=== PATIENT | male | born 1980 | race Caucasian/White ===

== ENCOUNTER 2020-05-30 15:37 | Emergency (ER) | payer BC, SELFPAY ==
[2020-05-30 15:59] VITALS: BP 173/108; PULSE 95; RESP 16; TEMP 36.7; O2SAT 97; BMI 62.4
--- NOTE | 2020-05-30 16:04 | HMH.EDUTC ---
[facility] [place] Disposition Clinical Impression: Pleurisy, Chest wall pain Disposition: Home, Self-Care Condition on Discharge: Good Instructions: Pleurisy, DI for Pleurisy Additional Instructions: Drink plenty of fluids. Take tylenol or ibuprofen for pain or fever. Take the medications as directed. Follow up with your regular doctor. GO TO THE ER FOR ANY WORSENING SYMPTOMS Don't start the oral steroids until tomorrow, since you had the shot here today. Keep an eye on your blood pressure and follow up with your primary care doctor regarding it. Prescriptions: methylPREDNISolone [Medrol] 4 mg PO DIRECTED 6 Days #21 [email or web address] Transmission Status: Received by [id number] Referrals: Sergio Nye [Primary Care Provider] - Forms: Work/School Release Time of Disposition: 16:50 Medical Decision Making - Medical Records Medical records reviewed: No: I reviewed the patient's medical records. - Rajendra Inquiry Pt receiving controlled substance: No Vital Signs: 05/30/20 15:59 05/30/20 16:54 Temperature 98.1 F 98.1 F Temperature Source Oral Pulse Rate 95 H Pulse Rate [Right Brachial] 95 H Respiratory Rate 16 16 Blood Pressure 173/108 H Blood Pressure [Right Arm] 173/108 H Blood Pressure Mean [Right Arm] 129 Blood Pressure Source [Right Arm] Automatic Cuff Blood Pressure Position [Right Arm] Sitting 02 Sat by Pulse Oximetry 97 Oxygen Delivery Method Room Air Orders (Tests/Meds): ED MEDICATIONS Discontinued Medications Generic Name Dose Route Start Last Admin Trade Name Freq PRN Reason Stop Dose Admin Ketorolac Tromethamine 60 mg 05/30/20 16:35 05/30/20 16:43 Toradol 60mg/2ml Vial IM 05/30/20 16:36 60 mg ONCE ONE Administration Methylprednisolone Sodium Succinate 125 mg 05/30/20 16:35 05/30/20 16:43 Solu-Medrol 125mg/2ml Vial IM 05/30/20 16:36 125 mg ONCE ONE Administration - Radiology Data #1 Image(s): Chest Image Reviewed: Yes I reviewed the patient's radiology image, Yes I have reviewed radiologist's interpretation Preliminary Findings: No Infiltrates Seen [facility] [place] HPI - General Stated complaint: pain under arm pit, hurts when breathe in Time Seen by Provider: 05/30/20 16:04 Mode of Arrival: Ambulatory Source of Information: Patient Limitations: No Limitations Description of Symptoms (Recalled from Triage Doc. by RN): PATIENT C/O PAIN UNDER LEFT ARM WHEN HE TAKES A DEEP BREATH. STATES THIS PAIN FEELS LIKE PLEURISY PAIN HE HAS HAD IN THE PAST HEENT Symptoms (Recalled from RN notes): No Resp Symptoms (Recalled from RN notes): No Skin Symptoms (Recalled from RN notes): No MS Symptoms (Recalled from RN notes): Yes Functional Status (Recalled from RN notes): WNL - History of Present Illness Provider Complaint: He states that he is having right shoulder pain and right upper anterior check pain with breathing deep and certain movements of his right shoulder. He denies any known injury or lifting of heavy things. He denies any fall recently. He has had pleursiy in [place] and he thinks that it felt just like what he is feeling at this time. - Related Data Home Medications Medication Instructions Recorded Confirmed amlodipine 10 mg-benazepril 20 mg PO 90 Days #90 cap 09/09/18 09/09/18 capsule omeprazole 40 mg capsule,delayed mg PO 90 Days #90 cap 09/09/18 09/09/18 release triamterene 75 PO 90 Days #90 tab 09/09/18 09/09/18 mg-hydrochlorothiazide 50 mg tablet venlafaxine 150 mg mg PO 30 Days #30 cap 09/09/18 09/09/18 capsule,extended release 24 hr Previous Rx's Medication Instructions Recorded Benzonatate [Benzonatate 200mg Cap] 200 mg PO HS PRN #14 cap 09/05/18 Fluticasone Propionate [Flonase 2 spr NS DAILY #1 bottle 09/05/18 50mcg nasal spray 16gm] doxycycline monohydrate 100 mg 100 mg PO BID 7 Days #14 cap 09/09/18 capsule methylPREDNISolone [Medrol] 4 mg PO DIRECTED 6 Days #21 05/30/20 tab.
--- NOTE | 2020-05-30 16:11 | XR_ITS ---
PROCEDURE: XR CHEST 2V CLINICAL HISTORY: PAIN COMPARISON: No exams were available for comparison FINDINGS: There is mild cardiomegaly without failure. There is a 13 mm nodule overlying the left lower lung zone. This is in the left lower lobe posteriorly and may be due to calcified granuloma. There are no previous exams available for comparison. No acute bony abnormalities. IMPRESSION: 13 mm left lower lobe nodule. This may be calcified and could be confirmed with CT. The remaining lungs are clear. Mild cardiomegaly without failure Dictated by: Emiliano Snyder MD 05/30/2020 16:47 Emiliano Snyder MD in [place] 05/30/2020 16:47
[2020-05-30 16:54] VITALS: BP 173/108; PULSE 95; RESP 16; TEMP 36.7; O2SAT 97
== END 2020-05-30 16:57 | disposition home or self-care (01) ==
PROVIDERS: Emergency Provider Nurse Practitioner Family; PCP Internal Medicine
DX: R09.1 Pleurisy (principal); R07.89 Other chest pain; I10 Essential (primary) hypertension; K21.9 Gastro-esophageal reflux disease without esophagitis; F41.9 Anxiety disorder, unspecified; Z88.0 Allergy status to penicillin; Z79.899 Other long term (current) drug therapy
CPT/HCPCS: 71046; 96372; 99202

== ENCOUNTER 2020-07-20 19:50 | Emergency (ER) | payer BC, SELFPAY ==
[2020-07-20 19:59] VITALS: BP 163/97; PULSE 105; RESP 16; TEMP 36.1; O2SAT 97; BMI 59.1
[2020-07-20 20:05] VITALS: BP 163/97; PULSE 105; RESP 16; TEMP 36.1; O2SAT 97; BMI 59.0
[2020-07-20 21:04] VITALS: BP 163/97; PULSE 105; RESP 16; TEMP 36.1; O2SAT 97
--- NOTE | 2020-07-20 21:04 | HMH.EDUTC ---
[facility] [place] Disposition Clinical Impression: Need for Tdap vaccination Hand laceration Qualifiers: Encounter type: initial encounter Foreign body presence: without foreign body Laterality: left Qualified Code(s): S61.412A - Laceration without foreign body of left hand, initial encounter Disposition: Home, Self-Care Condition on Discharge: Good Instructions: DI for Laceration Repair -- Finger, Tetanus, Diphtheria, Pertussis (Tdap) Vaccine Additional Instructions: Keep the wound clean and dry. Keep a dressing on it if you are going to be getting it dirty. Watch the for signs of infection, such as redness, swelling, drainage, fever. etc. Take tylenol or ibuprofen for pain. Follow up with your regular doctor. Return in 10 days to have the sutures removed. GO TO THE ER FOR ANY WORSENING SYMPTOMS OR CONCERNS. Referrals: Sergio Nye [Primary Care Provider] - Time of Disposition: 21:10 Medical Decision Making - Medical Records Medical records reviewed: No: I reviewed the patient's medical records. - Rajendra Inquiry Pt receiving controlled substance: No Vital Signs: 07/20/20 19:59 07/20/20 20:05 07/20/20 21:04 Temperature 97 F L 97 F L 97 F L Temperature Source Oral Oral Oral Pulse Rate 105 H Pulse Rate [Right Brachial] 105 H 105 H Respiratory Rate 16 16 16 Blood Pressure 163/97 H Blood Pressure [Right Arm] 163/97 H 163/97 H Blood Pressure Mean [Right Arm] 119 119 Blood Pressure Source Automatic Cuff Blood Pressure Source [Right Arm] Automatic Cuff Blood Pressure Position Sitting Blood Pressure Position [Right Arm] Sitting Sitting 02 Sat by Pulse Oximetry 97 97 Oxygen Delivery Method Room Air Room Air Room Air Orders (Tests/Meds): ED MEDICATIONS Discontinued Medications Generic Name Dose Route Start Last Admin Trade Name Freq PRN Reason Stop Dose Admin Tetanus/Diphtheria Toxoids 0.5 ml 07/20/20 20:09 07/20/20 20:26 Tetanus-Diphth Toxoid, Adult 0.5ml Syr IM 07/20/20 20:10 0.5 ml .ONCE ONE Administration [facility] [place] HPI - General Stated complaint: AO 07/20/20 Lac to l thumb cutting tobacco Time Seen by Provider: 07/20/20 20:05 Mode of Arrival: Ambulatory Source of Information: Patient Limitations: No Limitations Description of Symptoms (Recalled from Triage Doc. by RN): lac to thumb HEENT Symptoms (Recalled from RN notes): No Resp Symptoms (Recalled from RN notes): No Skin Symptoms (Recalled from RN notes): Yes MS Symptoms (Recalled from RN notes): No Functional Status (Recalled from RN notes): wnl - History of Present Illness Provider Complaint: He states that he was cutting a zip tie with a knife when he slipped and cut his left thumb. His tetanus immunization is not up to date. - Related Data Home Medications Medication Instructions Recorded Confirmed amlodipine 10 mg-benazepril 20 mg PO 90 Days #90 cap 09/09/18 09/09/18 capsule omeprazole 40 mg capsule,delayed mg PO 90 Days #90 cap 09/09/18 09/09/18 release triamterene 75 PO 90 Days #90 tab 09/09/18 09/09/18 mg-hydrochlorothiazide 50 mg tablet venlafaxine 150 mg mg PO 30 Days #30 cap 09/09/18 09/09/18 capsule,extended release 24 hr Previous Rx's Medication Instructions Recorded Benzonatate [Benzonatate 200mg Cap] 200 mg PO HS PRN #14 cap 09/05/18 Fluticasone Propionate [Flonase 2 spr NS DAILY #1 bottle 09/05/18 50mcg nasal spray 16gm] doxycycline monohydrate 100 mg 100 mg PO BID 7 Days #14 cap 09/09/18 capsule methylPREDNISolone [Medrol] 4 mg PO DIRECTED 6 Days #21 05/30/20 tab.[email or web address] Allergies Allergy/AdvReac Type Severity Reaction Status Date / Time cefaclor [From Ceclor] Allergy Verified 05/30/20 16:05 cephalexin [From Keflex] Allergy Verified 05/30/20 16:05 Penicillins Allergy Verified 05/30/20 16:05 - Worker's Comp Is this a Worker's Comp case?: No [facility] History - Hepatitis A Screen Drug use history?: No High risk sexual behaviors?: No Hi
== END 2020-07-20 21:17 | disposition home or self-care (01) ==
PROVIDERS: Emergency Provider Nurse Practitioner Family; PCP Internal Medicine
DX: S61.012A Laceration without foreign body of left thumb without damage to nail, initial encounter (principal); W26.0XXA Contact with knife, initial encounter; Y92.71 Barn as the place of occurrence of the external cause; Z23 Encounter for immunization; Z88.0 Allergy status to penicillin; F41.9 Anxiety disorder, unspecified; I10 Essential (primary) hypertension; K21.9 Gastro-esophageal reflux disease without esophagitis; Z79.899 Other long term (current) drug therapy
CPT/HCPCS: 12001; 90471; 90714; 99201

== ENCOUNTER → 2021-05-17 10:37 | Outpatient (CLI) | payer BC, SELFPAY ==
--- NOTE | 2021-05-17 10:41 | XR_ITS ---
PROCEDURE: XR CHEST 2V CLINICAL HISTORY: FOLLOW UP OF LLL NODULE, ASHTMA COMPARISON: CR XR CHEST 2V from 05/30/2020 FINDINGS: Borderline cardiomegaly without failure. There are 2 left lower lung zone nodules not significantly changed consistent with granulomas. Calcified nodes are present in the left hilum and right hilum. No acute bony abnormalities. IMPRESSION: Old granulomatous disease. No change in the left-sided pulmonary nodules Dictated by: Emiliano Snyder MD 05/17/2021 11:34 Emiliano Snyder MD in [place] 05/17/2021 11:34
== END ==
PROVIDERS: PCP Internal Medicine; Visit Provider Internal Medicine
DX: R91.1 Solitary pulmonary nodule (principal); J45.909 Unspecified asthma, uncomplicated; I10 Essential (primary) hypertension
CPT/HCPCS: 71046

== ENCOUNTER → 2021-06-24 09:35 | Outpatient (CLI) | payer BC, SELFPAY | PROVIDERS: Visit Provider Surgery | DX: Z20.822 Contact with and (suspected) exposure to COVID-19 (principal) | CPT/HCPCS: C9803; U0003; U0005 ==

== ENCOUNTER 2021-06-26 06:26 | Day surgery (SDC) | payer BC, SELFPAY ==
[2021-06-25 11:05] VITALS: BMI 62.6
[2021-06-26 06:56] VITALS: BP 113/62; PULSE 79; RESP 18; TEMP 36.4; O2SAT 97
[2021-06-26 07:23] VITALS: O2SAT 97
--- NOTE | 2021-06-26 07:57 | HMH.SCOPE ---
- Procedure: Date: 06/26/21 Patient Date of :: 1980 Procedure Performed:: Colonoscopy with polypectomy by snare x3 Indications:: Patient is a 41-year-old male with BMI of [address] Sergio Nye for initial screening colonoscopy for family history. He is asymptomatic regarding rectal bleeding. His father was diagnosed with colon cancer in his late 50s. Performing Provider:: Mat London MD Referring Provider:: Sergio Nye MD Sedation:: MAC sedation Procedure:: After adequate intravenous sedation was achieved digital examination was performed which revealed normal sphincter tone. Variable stiffness Olympus colonoscope was inserted via the anus. It was advanced to the cecum. Ileocecal valve and appendiceal orifice were clearly identified. Colonic preparation was good. Colonoscope was withdrawn through the colon with careful surveillance. In the ascending colon there was a small adenomatous appearing polyp measuring about 5 or 6 mm. This was removed with cold cutting snare. In the transverse colon there was a somewhat subtle ridge polyp removed with cold cutting snare. In the distal sigmoid colon there was an adenomatous appearing polyp measuring about 5 mm removed with cold cutting snare. Retroflexion within the rectum revealed no evidence of any obvious pathologic internal hemorrhoids. Colonoscope was withdrawn. Findings:: Polyps Recommendations:: Given family history and findings likely repeat colonoscopy 2 or 3 years pending pathology Complications:: None immediately apparent Estimated blood obtained (mL): 2
[2021-06-26 07:59] VITALS: BP 121/77; PULSE 84; RESP 18; TEMP 36.6; O2SAT 92
--- NOTE | 2021-06-26 08:04 | P.PN_ITS ---
[facility] Anesthesia Checklist - Patient Identification Patient Identification: Arm Band, Verbal (Name & ) - Structural Data Admitted From: Home Planned Operative Procedure/s: colonoscopy Consent for Planned Operative Procedure(s) Verified: Yes Verified Documents: History and Physical - NPO Status Verified Time NPO: 00:00 - Chart Verification Results Verified: CBC, BMP - Additional verifications Patient : No Anesthesia Reactions: No Hx Blood Transfusions: No Blood Transfusion Reaction: No Cephalosporin Allergy: No Previous Colonoscopy: No - Cardiovascular Assessment Heart Sounds: S1 & S2 Pulse Strength: Baseline Pulse Rhythm: Regular Peripheral Edema: No - Airway Assessment C-Spine Mobility Assessed: Yes TMJ Mobility Assessed: Yes Dentition: Good Dentition - Neurological Assessment Level of Consciousness: Awake, Alert, Appropriate Hx Seizures: No Numbness or tingling in extremities: No - Anesthesia Plan Anesthesia Risk discussed: Yes Anesthesia Plan: Verified Anesthesia Type: MAC [facility] History I have reviewed the patient's past medical history: Yes Medical History: Reports:: Anxiety, Gastroesophageal Reflux Disease(GERD), Hypertension Denies:: Cancer, Diabetes Mellitus Type 1, Diabetes Mellitus Type 2, Internal Pacemaker, MRSA, Seizures *Have you ever received a pneumonia vaccine?: No *Have you received a flu vaccine this season?: Yes Anesthesia experience/problems:: none Other Surgeries: Yes: No Previous Surgery, Other. No: Pacemaker Amputation: No Fractures: Yes (r arm plates/screws) - *Social History Smoking Status: Never smoker Alcohol Intake: current Alcohol Intake Frequency:: holidays/special occasions only Substance Use Type: other *Occupational Status:: employed Housing: house Household Members: family *Travel in the last 8 weeks: None - Psychiatric History Pschychiatric History:: Reports:: Anxiety Family Hx:: Cancer, Hypertension
[2021-06-26 08:09] VITALS: BP 123/78; PULSE 79; RESP 16; O2SAT 95
[2021-06-26 08:19] VITALS: BP 134/87; PULSE 71; RESP 16; O2SAT 98
[2021-06-26 08:29] VITALS: BP 138/79; PULSE 77; RESP 16; O2SAT 99
== END 2021-06-26 08:29 | disposition home or self-care (01) ==
LOC: OUTP 06:27
PROVIDERS: PCP Internal Medicine; Visit Provider Surgery
PROC: 0DJD8ZZ Inspection of Lower Intestinal Tract, Via Natural or Artificial Opening Endoscopic (ICD-10-PCS; CPT 45385; principal; 2021-06-26 07:30)
DX: Z12.11 Encounter for screening for malignant neoplasm of colon (principal); Z80.0 Family history of malignant neoplasm of digestive organs; K63.5 Polyp of colon; I10 Essential (primary) hypertension; K21.9 Gastro-esophageal reflux disease without esophagitis; F41.9 Anxiety disorder, unspecified; Z82.49 Family history of ischemic heart disease and other diseases of the circulatory system; Z88.0 Allergy status to penicillin; Z88.1 Allergy status to other antibiotic agents; Z79.899 Other long term (current) drug therapy
CPT/HCPCS: 45385

== ENCOUNTER → 2021-11-04 14:23 | Outpatient (CLI) | payer BC, SELFPAY ==
--- NOTE | 2021-11-04 14:31 | XR_ITS ---
FINAL REPORT CLINICAL HISTORY: LEFT LEG INJURY, PT FELL THROUGH A FLOOR DAY EVENING. VERY LARGE PATIENT. FINDINGS: LEFT TIBIA FIBULA 2 views were obtained. There is no acute fracture or dislocation. The joint spaces are intact. There is a small to moderate plantar spur. There is no soft tissue abnormality. IMPRESSION: No acute bony abnormality. Reviewed, Interpreted and Dictated by Lenin Summers MD Transcribed by Lashanda Luz Authenticated by Lenin Summers MD on 11/04/2021 03:37:18 PM [facility]
--- NOTE | 2021-11-04 14:31 | XR_ITS ---
FINAL REPORT CLINICAL HISTORY: LEFT LEG INJURY. PATIENT FELL THROUGH FLOOR THURSDAY EVENING. VERY LARGE PATIENT. FINDINGS: LEFT HIP Two views of the left hip including an AP pelvis demonstrate no acute fracture or dislocation. There is mild narrowing of the left hip space. The visualized bony structures are well aligned. The bones are well mineralized. No soft tissue abnormality is seen. IMPRESSION: No acute bony abnormality. Reviewed, Interpreted and Dictated by Lenin Summers MD Transcribed by Lashanda Luz Authenticated by Lenin Summers MD on 11/04/2021 03:37:19 PM [facility]
--- NOTE | 2021-11-04 14:31 | XR_ITS ---
FINAL REPORT CLINICAL HISTORY: LEFT LEG INJURY. PT FELL THROUGH FLOOR THURSDAY EVENING, VERY LARGE PATIENT. FINDINGS: LEFT FEMUR Two views of the left femur demonstrate no acute fracture or dislocation. The visualized joint spaces are normally aligned. The soft tissues are unremarkable. IMPRESSION: No acute bony abnormality. Reviewed, Interpreted and Dictated by Lenin Summers MD Transcribed by Lashanda Luz Authenticated by Lenin Summers MD on 11/04/2021 03:37:[address] [facility]
--- NOTE | 2021-11-04 14:31 | XR_ITS ---
FINAL REPORT CLINICAL HISTORY: LEFT LEG INJURY, PATIENT FELL THROUGH A FLOOR THURSDAY EVENING, VERY LARGE PATIENT. FINDINGS: LEFT KNEE 3 views of the left knee were obtained. There is no acute fracture or dislocation. There is mild narrowing of the patellofemoral joint. There is sharpening of the tibial spine. Soft tissues are unremarkable. IMPRESSION: No acute bony abnormality. Reviewed, Interpreted and Dictated by Lenin Summers MD Transcribed by Lashanda Luz Authenticated by Lenin Summers MD on 11/04/2021 03:37:14 PM [facility]
== END ==
PROVIDERS: PCP Internal Medicine; Visit Provider Internal Medicine
DX: S89.92XA Unspecified injury of left lower leg, initial encounter; M25.552 Pain in left hip; M79.605 Pain in left leg
CPT/HCPCS: 73502; 73552; 73562; 73590

== ENCOUNTER 2022-07-27 11:57 | Emergency (ER) | payer BC, SELFPAY ==
[2022-07-27 12:15] VITALS: BP 169/101; PULSE 97; RESP 20; O2SAT 99; BMI 62.8
--- NOTE | 2022-07-27 12:17 | XR_ITS ---
PROCEDURE INFORMATION: Exam: XR Left Foot Exam date and time: 07/27/2022 1:24 PM Age: 42 years old Clinical indication: Injury or trauma; Fall; Blunt trauma; Foot; Left TECHNIQUE: Imaging protocol: Radiologic exam of the Left foot. Views: 3 or more views. COMPARISON: CR XR TIBIA FIBULA LT 2V 11/04/2021 2:37 PM FINDINGS: Bones/joints: There is no evidence of acute fracture.There is no evidence of malalignment or dislocation. Degenerative changes in the tarsal metatarsal joints Soft tissues: Normal. IMPRESSION: There is no evidence of acute fracture.There is no evidence of malalignment or dislocation.
[2022-07-27 12:50] VITALS: BP 169/101; PULSE 97; RESP 20; TEMP 37; O2SAT 99; BMI 62.6
--- NOTE | 2022-07-27 13:21 | EXP.UTC ---
Discharge Plan Disposition Patient Disposition: Home, Self-Care Condition: Good Prescriptions Prescriptions: No Action venlafaxine 150 mg capsule,extended release 24hr 150 mg PO DAILY 30 Days Qty: 30 triamterene-hydrochlorothiazid 75-50 mg tablet 1 mg PO DAILY 90 Days Qty: 90 omeprazole 40 mg capsule,delayed release(DR/EC) 1 mg PO DAILY 90 Days Qty: 90 amlodipine-benazepril 10-20 mg capsule 1 mg PO DAILY 90 Days Qty: 90 Referrals Follow up/Referrals: Sergio Nye MD [Primary Care Provider] - See instructions Criselda Edgar DPM [Staff Physician] - See instructions Activity Restrictions/Add. Instructions Additional Instructions/Restrictions: *weight bearing as tolerated *RICE, Rest the extremity, Ice 15-20 minutes 3-4 times daily, Compress- wear the kobe wrap as discussed as much as possible to help reduce swelling and pain, Elevate the extremity when at rest *Kobe wrap is for support and help control swelling, use it except in the shower. Be sure that is not to tight but not to loose either *Elevate when resting? *Ibuprofen 600-800mg every 6-8 hours as needed for pain an inflammation. If need something more can take Tylenol in between doses of Ibuprofen to help Immediately follow up with your family doctor for new or worsening of symptoms, or no noticeable improvement over the next 3-5 days Follow up with Family Doctor or Podiatry if pain continues Clinical Impressions Clinical Impression: Foot sprain Qualifiers: Encounter type: initial encounter Laterality: left Qualified Code(s): S93.602A - Unspecified sprain of left foot, initial encounter Instructions Patient Instructions: How To Perform RICE (Rest, Ice, Compress, Elevate), DI for Foot Sprain Discharge ED Provider: Mary Jo Arce [facility] [place] General Stated complaint: Fell 07/26@home LT foot pain Mode of Arrival: Ambulatory Source of Information: Patient Limitations: No Limitations Time Seen by Provider: 07/27/22 13:00 Description of Symptoms (Recalled from Triage Doc. by RN): PATIENT C/O LEFT FOOT PAIN AFTER FALLING WITH HIS FOOT FOLDING UNDER HIM LAST NIGHT HEENT Symptoms (Recalled from RN notes): No Resp Symptoms (Recalled from RN notes): No Skin Symptoms (Recalled from RN notes): No MS Symptoms (Recalled from RN notes): Yes Functional Status (Recalled from RN notes): WNL History of Present Illness Provider Complaint: Patient states that last night he was walking and tripped over dog he thinks and rolled his toes and foot States that ever since he has been having pain in the top of his foot from his middle toe back and this morning he was still hurting and looked bruised so he came in Related Data Home Medications Medication Instructions Recorded Confirmed amlodipine 10 mg-benazepril 20 mg 1 mg PO DAILY BP 90 days #90 caps 09/09/18 07/05/21 capsule omeprazole 40 mg capsule,delayed 1 mg PO DAILY ACID REFLUX 90 days 09/09/18 07/05/21 release #90 caps triamterene 75 1 mg PO DAILY BP 90 days #90 tabs 09/09/18 07/05/21 mg-hydrochlorothiazide 50 mg tablet venlafaxine 150 mg 150 mg PO DAILY Depression 30 days 09/09/18 07/05/21 capsule,extended release 24 hr #30 caps Allergies Allergy/AdvReac Type Severity Reaction Status Date / Time cefaclor [From Ceclor] Allergy Verified 07/05/21 09:35 cephalexin [From Keflex] Allergy Verified 07/05/21 09:35 Penicillins Allergy Verified 07/05/21 09:35 Worker's Comp Is this a Worker's Comp case?: No PFSH PFSH Social History Smoking Status: Never smoker alcohol intake: current substance use type: other current occupational status: employed Travel in the last 8 weeks: None household members: family housing: house caffeine: No ROS Obtained: Yes All systems reviewed & no additional complaints except as documented and Yes Systems reviewed as appropriate & no additional complaints except as documented Constitutional Constitutional: Reports system reviewed an
[2022-07-27 14:34] VITALS: BP 169/101; PULSE 97; RESP 20; TEMP 37; O2SAT 99
--- NOTE | 2022-07-27 14:34 | PC.NURSE ---
JACK WRAP AND POST-OP SHOE APPLIED TO LEFT FOOT AT THIS TIME
== END 2022-07-27 14:41 | disposition home or self-care (01) ==
PROVIDERS: Emergency Provider Nurse Practitioner; PCP Internal Medicine
DX: S93.602A Unspecified sprain of left foot, initial encounter (principal); Z79.899 Other long term (current) drug therapy; Z88.0 Allergy status to penicillin; Z88.8 Allergy status to other drugs, medicaments and biological substances; W01.0XXA Fall on same level from slipping, tripping and stumbling without subsequent striking against object, initial encounter
CPT/HCPCS: 73630; 99213; G0463

== ENCOUNTER → 2022-08-12 11:29 | Outpatient (CLI) | payer BC, SELFPAY ==
--- NOTE | 2022-08-12 11:34 | XR_ITS ---
FINAL REPORT CLINICAL HISTORY: FALL 07/27/22 LT FOOT INJURY,PAIN IN 3RD AND 4TH TOES FINDINGS: Multiple views of the left toes were obtained. There is a fracture of the 3rd middle phalanx best seen on the lateral view that extends to the PIP joint. There is no acute fracture of the 4th toe. There is no dislocation. There are no acute soft tissue abnormalities. IMPRESSION: Fracture of the 3rd middle phalanx with intra-articular extension. Reviewed, Interpreted and Dictated by Mat Snow III, MD Transcribed by Marcus Garcia Authenticated and [facility]
--- NOTE | 2022-08-12 11:34 | XR_ITS ---
FINAL REPORT CLINICAL HISTORY: FALL 07/27/22 LT FOOT INJURY,PAIN IN 3RD AND 4TH TOES COMPARISON: July 27, 2022 FINDINGS: Three views of the left foot were obtained. There is a vertical lucency through the navicular worrisome for fracture but of uncertain age. There is a chronic fracture of the 5th proximal phalanx. There is a fracture of the 3rd middle phalanx best seen on the lateral view. There is no dislocation. There are no acute soft tissue abnormalities. IMPRESSION: Vertical lucency in the navicular worrisome for fracture but of uncertain age could be subacute or chronic. Fracture of the 3rd middle phalanx. Reviewed, Interpreted and Dictated by Mat Snow III, MD Transcribed by Marcus Garcia Authenticated and [facility]
--- NOTE | 2022-08-12 12:07 | XR_ITS ---
FINAL REPORT CLINICAL HISTORY: PAIN after fall 2 weeks ago pain in 3rd toe FINDINGS: Multiple views of the left toes were obtained. There is a fracture of the 3rd middle phalanx best seen on the lateral view that extends to the PIP joint. There is no acute fracture of the 4th toe. There is no dislocation. There are no acute soft tissue abnormalities. IMPRESSION: Fracture of the 3rd middle phalanx with intra-articular extension. Reviewed, Interpreted and Dictated by Mat Snow III, MD Transcribed by Marcus Garcia Authenticated and [facility]
== END ==
LOC: RAD 11:30
PROVIDERS: PCP Internal Medicine; Visit Provider Internal Medicine
DX: M79.675 Pain in left toe(s) (principal); S99.922A Unspecified injury of left foot, initial encounter; W19.XXXA Unspecified fall, initial encounter
CPT/HCPCS: 73630; 73660

== ENCOUNTER → 2022-09-12 11:23 | Outpatient (CLI) | payer BC, SELFPAY ==
--- NOTE | 2022-09-12 11:32 | XR_ITS ---
FINAL REPORT CLINICAL HISTORY: 3rd toe fracture COMPARISON: August 12, 2022 FINDINGS: Multiple views of the left toes were obtained. There is a mildly displaced transverse fracture through the proximal aspect of the 3rd middle phalanx. There is extension into the PIP joint. There is no dislocation. There are no acute soft tissue abnormalities. IMPRESSION: Fracture of the 3rd middle phalanx with intra-articular extension. Reviewed, Interpreted and Dictated by Lenin Summers MD Transcribed by Marcus Garcia Authenticated and [facility]
--- NOTE | 2022-09-12 11:32 | XR_ITS ---
FINAL REPORT CLINICAL HISTORY: Left 3rd toe fx COMPARISON: August 12, 2022 FINDINGS: 3 views of the left foot were obtained. There is a small plantar calcaneal spur. There is a fracture of the 3rd middle phalanx. The joint spaces are intact. The soft tissues are unremarkable. IMPRESSION: Fracture of the 3rd middle phalanx. Please see report from toe exam. Reviewed, Interpreted and Dictated by Lenin Summers MD Transcribed by Marcus Garcia Authenticated and [facility]
== END ==
PROVIDERS: PCP Internal Medicine; Visit Provider Nurse Practitioner Family
DX: M79.672 Pain in left foot (principal); S92.502A Displaced unspecified fracture of left lesser toe(s), initial encounter for closed fracture; S93.602A Unspecified sprain of left foot, initial encounter
CPT/HCPCS: 73630; 73660

== ENCOUNTER 2024-04-27 11:29 | Outpatient (CLI) | payer BC, SELFPAY ==
--- NOTE | 2024-04-27 11:34 | XR_ITS ---
FINAL REPORT CLINICAL HISTORY: Right knee pain around patella nki FINDINGS: AP, lateral and oblique views of the right knee were obtained. There is no prior exam for comparison. There is no acute osseous abnormality of the right knee. There is mild patellofemoral degenerative change. The soft tissues are normal. There is no joint effusion. IMPRESSION: Mild patellofemoral degenerative change. Reviewed, Interpreted and Dictated by Alba Loaiza MD Transcribed by Marcelina Zavala Authenticated and [facility]
== END 2024-04-27 23:59 | disposition home or self-care (01) ==
LOC: RAD 11:31
PROVIDERS: PCP Internal Medicine; Visit Provider Internal Medicine
DX: M25.561 Pain in right knee (principal)
CPT/HCPCS: 73562

== ENCOUNTER 2025-02-28 13:52 | Outpatient (CLI) | payer BC, SELFPAY ==
--- NOTE | 2025-02-28 13:55 | XR_ITS ---
FINAL REPORT CLINICAL HISTORY: Right shoulder pain x3 days FINDINGS: RIGHT SHOULDER 2 views demonstrate no acute fracture or dislocation. The visualized joint spaces are normally aligned. The soft tissues are unremarkable. IMPRESSION: No acute process. Reviewed, Interpreted and Dictated by Darcie Oseguera MD Transcribed by Millicent Castrejon Authenticated and [facility]
== END 2025-02-28 23:59 | disposition home or self-care (01) ==
LOC: RAD 13:53
PROVIDERS: PCP Internal Medicine; Visit Provider Internal Medicine
DX: M25.511 Pain in right shoulder (principal)
CPT/HCPCS: 73030

== ENCOUNTER 2025-06-13 13:18 | Emergency (ER) | payer BC, SELFPAY ==
[2025-06-13] VITALS (7 sets, daily range): BP systolic 141–205; BP diastolic 91–122; PULSE 82–90; RESP 12–26; TEMP 36.8; O2SAT 95–98; BMI 47.5
--- NOTE | 2025-06-13 13:21 | XR_ITS ---
FINAL REPORT CLINICAL HISTORY: l chest pain, soa, dizzy COMPARISON: 05/17/2021 FINDINGS: The heart size is mildly enlarged. The mediastinum is normal. Film was obtained and lordotic positioning. The lungs are underinflated. There is no focal infiltrate or edema. There are no pleural effusions. There is no pneumothorax. There is no osseous abnormality. IMPRESSION: No acute cardiopulmonary process. Underinflation of the lungs. Reviewed, Interpreted and Dictated by Lenin Summers MD Transcribed by Chery Peres Authenticated and [facility]
--- NOTE | 2025-06-13 13:26 | ECG_ITS ---
APPROVED REPORT Exam: Resting ECG HR:84 bpm ECG Measurements Heart Rate 84 AXES [place] 166 P 51 QRSd 121 QRS -2 QT 342 T 44 QTc 383 Conclusion SINUS RHYTHM POSSIBLE RIGHT VENTRICULAR CONDUCTION DELAY [RSR (QR) IN V1/V2] POSSIBLE ANTERIOR MYOCARDIAL INFARCTION , PROBABLY OLD [30 ms Q WAVE IN V3/V4, OR R < 0.2 mV IN V4] BORDERLINE ECG UNCONFIRMED REPORT Electronically signed by : Ryan Franco, 06/15/2025 15:28:48
[2025-06-13 13:44] LABS: Hematocrit 42.2 % (42.0-52.0); Hemoglobin 14.5 g/dL (14.1-18.0); Immature Granulocytes % 0.7 %; Mean Corpuscular HGB Conc 34.4 g/dL (31.8-35.4); Mean Corpuscular Hemoglobin 28.5 pg (27.0-31.2); Mean Corpuscular Volume 82.9 fl (80-94); Nucleated Red Blood Cells % 0 %; Platelet Count 209 K/mm3 (142-424); Red Blood Count 5.09 M/mm3 (4.60-6.20); Red Cell Distribution Width-SD 39.8 fL; White Blood Count 11.1 K/mm3 (4.8-10.8)
[2025-06-13 13:46] LABS: Lactate Venous 1.7 mmol/L (0.4-2.0); VBG HCO3 28.5 mmol/L (23-30); VBG PCO2 52.5 mmol/L (35-51); VBG PH 7.35 mmol/L (7.31-7.41); VBG PO2 45.1 mmol/L (28-40)
[2025-06-13 13:51] LABS: Lipase 30 U/L (23-300)
[2025-06-13 13:52] LABS: Alanine Aminotransferase 43 U/L (12-78); Albumin Level 4.5 g/dl (3.5-5.0); Albumin/Globulin Ratio 1.4 (1.1-1.8); Alkaline Phosphatase 105 U/L (38-126); Anion Gap 11.5 mEq/L (5-15); Aspartate Amino Transferase 37 U/L (17-59); Bilirubin,Total 0.8 mg/dl (0.2-1.3); Blood Urea Nitrogen 14 mg/dl (9-20); Calcium 9.4 mg/dl (8.4-10.2); Carbon Dioxide 30 mmol/L (22.0-30.0); Chloride 100 mmol/L (98-107); Creatinine Clearance Estimated 102 mL/min (50-200); Creatinine,Serum 1.00 mg/dl (0.66-1.25); Estimated Glomerular Filt Rate 81 ml/min (>60); GFR (African American) 98 ML/MIN (>60); Globulin 3.3 g/dL (1.3-3.2); Glucose 92 mg/dl (74-100); Magnesium 1.8 mg/dl (1.6-2.3); Potassium 3.5 mmoL/L (3.5-5.1); Sodium 138 mmol/L (136-145); Total Protein,Serum 7.8 g/dl (6.3-8.2)
[2025-06-13 13:56] LABS: D-Dimer 0.55 ug/mL (0.0-0.5)
[2025-06-13] MEDS: ASPIRIN 325MG TABLET 325 MG PO (13:56)
[2025-06-13] MEDS: ONDANSETRON 4MG/2ML VIAL 4 MG IV (13:56)
[2025-06-13] MEDS: MORPHINE 2MG/ML SYRINGE 2 MG IV (13:59)
--- NOTE | 2025-06-13 13:59 | ED_ITS ---
<Statement entered by Heidi Franco MD - 06/15/25 07:19> I was consulted by the DUNIA, and we discussed the complexity of the problems being addressed. I approved the treatment and management plan for this patient's care in the emergency department, thus performing a substantive portion of the medical decision making. Heidi Franco MD, KAREN, FACEP Discharge Plan Disposition Patient Disposition: Home, Self-Care Prescriptions Prescriptions: No Action hydralazine 25 mg tablet 25 mg PO ONCE PRN venlafaxine 75 mg capsule,extended release 24hr 75 mg PO ONCE Patient Comments: TAKE 1 CAPSULE BY MOUTH ONCE DAILY albuterol sulfate 90 mcg/actuation HFA aerosol inhaler 2 puff inhalation Q4-6H PRN (Reason: shortness of breath or wheezing) Qty: 8.5 3RF triamterene-hydrochlorothiazid 75-50 mg tablet 1 tab PO DAILY 90 Days Qty: 90 1RF amlodipine-benazepril 10-20 mg capsule 1 cap PO DAILY 90 Days Qty: 90 1RF omeprazole 40 mg capsule,delayed release(DR/EC) 40 mg PO DAILY 90 Days Qty: 90 1RF venlafaxine 150 mg capsule,extended release 24hr 150 mg PO DAILY Qty: 90 1RF terbinafine HCl 250 mg tablet 250 mg PO DAILY Qty: 30 0RF Referrals Follow up/Referrals: Sergio Nye MD [Primary Care Provider, Medical] - See instructions Philip Gar MD [Staff Physician, Cardiology] - See instructions Activity Restrictions/Add. Instructions Additional Instructions/Restrictions: Continue to take blood pressure medicine as prescribed. Please call Dr. Gar for cardiology appointment as discussed. Return to ED for any worsening signs or symptoms. Clinical Impressions Clinical Impression: High blood pressure, Chest pain Instructions Patient Instructions: DI for Chest Pain Print Language Print Language: Vietnamese Discharge ED Provider: Heidi Franco General Adult HPI General Chief complaint: Chest Pain Stated complaint: Chest Pain @ 12 Time Seen by Provider: 06/13/25 13:27 Mode of Arrival: Family Vehicle Source of Information: Patient and Medical Record Description of Symptoms (Recalled from ER Triage Doc. by RN): Pt c/o severe chest pain that began at work (sitting @ desk) at noon, 12p, today. Rates 7/10 on TOE SEWER. Reports the pain is tight and stabbing. He is dizzy. He reports SOB with dyspnea. His BP is also elevated despite taking his home prescribed meds this am. History of Present Illness HPI narrative: Male presents to the ED with complaints of chest pain that began close he says approximately sharp left sided chest pain. He does complain of some dizziness and shortness of air. He did take his blood pressure and his initial blood pressure was 202/118. He has taken his blood pressure medications he has no heart history and no stents. He does have some shortness of breath. Related Data Home Medications ?Medication ?Instructions ?Recorded ?Confirmed hydralazine 25 mg tablet 25 mg PO ONCE PRN 04/05/24 0 03/13/25 venlafaxine 75 mg capsule,extended 75 mg PO ONCE 11/1503/13/25 release 24 hr Previous Rx's ?Medication ?Instructions ?Recorded albuterol sulfate 90 mcg/actuation 2 puff inhalation Q 4-6H PRN 11/15/24 aerosol inhaler shortness of breath or wheez ing #8.5 grams amlodipine 10 mg-benazepril 20 mg 1 cap PO DAILY BP 90 days #90 caps 12/08/24 capsule omeprazole 40 mg capsule,delayed 40 mg PO DAILY ACID R EFLUX 90 days 12/08/24 release #90 caps terbinafine HCl 250 mg tablet 250 mg PO DAILY Athlete' s foot #30 12/08/24 tabs triamterene 75 1 tab PO DAILY BP 90 days #9 0 tabs 12/08/24 mg-hydrochlorothiazide 50 mg tablet venlafaxine 150 mg 150 mg PO DAILY #90 caps capsule,extended release 24 hr Allergies Allergy/AdvReac Type Severity Reaction Status Date / Time cefaclor (From Ceclor) Allergy Verified 03/13/25 09:20 cephalexin (From Keflex) Allergy Verified 03/13/25 09:20 Penicillins Allergy Verified 03/13/25 09:20 [facility] Disclaimer: The information contained in this section may have been updated after the patient was seen, as this information can be updated by other users. Medical History Asthma High blood pressure Obstructive sleep apnea Depression Surgical History History of hernia surgery History of surgery on arm Family History Other Diabetes Hypertension Obesity Stroke Social History Smoking Status: Never smoker smoking status start date: 1993 years smoked: 18 smoking status stop date: 2011 alcohol intake: current alcohol intake frequency: holidays/special occasions only substance use type: denies use and other current occupational status: employed Travel in the last 8 weeks?: None household members: family housing: house marital status: number of children: 2 caffeine: No Have you lived/traveled outside [place] in past 30 days?: No Contact w/someone who lives/traveled outside US past 30 days?: No Exposure to someone with infectious disease in past 14 days?: No Do you have a fever (greater than 100.4 F or 38 C)?: No Have you tested positive for COVID-19?: No Exposed to someone with COVID-19 in past 14 days?: No Do you have a sore throat?: No Do you have a cough?: No Do you have any weakness?: No Do you have any diarrhea?: No Are you experiencing any unusual bleeding?: No Do you have any muscle aches/pain?: No Do you have any abdominal pain?: No Are you experiencing loss of taste or smell?: No Other Medical History Have you received the Flu Vaccine for this season: Yes Have you received the Pneumonia Vaccine: No ROS Obtained: Yes Systems reviewed as appropriate & no additional complaints except as documented Constitutional Constitutional: Reports as per HPI Physical Exam General General appearance: alert and anxious Head Head exam: normocephalic Eye Eye exam: Present PERRL ENT ENT exam: Present normal exam and mucous membranes moist Neck Neck exam: Present trachea midline Chest Chest inspection: Present symmetric chest wall rise Respiratory Respiratory exam: Present normal lung sounds bilaterally Cardiovascular Cardiovascular exam: Present regular rate, normal rhythm, normal heart sounds, +S1 and +S2 Abdominal Exam Abdominal exam: Present soft and normal bowel sounds Extremities Exam Extremities exam: Present normal inspection, full ROM and normal capillary refill Back Exam Back exam: Present normal inspection and full ROM Neurological Exam Neurological exam: Present alert, oriented X3 and normal gait Psychiatric Psychiatric exam: Present normal mood Skin Skin exam: Present warm and dry Medical Decision Making Medical Records Screening: Per USPSTF and CDC recommendations, given the prevalence of disease in our region, it is our hospital?s policy to screen for HIV and viral Hepatitis for all patients aged 18 and over and those with ongoing risk factors. Rajenrda Inquiry Pt receiving controlled substance: No Rajnedra was queried for this patient: No Vital Signs: 06/13/25 13:19 06/13/25 13:20 06/13/25 14:00 Temperature Temperature Source Oral Pulse Rate 89 88 Pulse Rate [Right Radial] 90 Respiratory Rate 26 H 20 17 Blood Pressure 190/114 H 190/114 H Blood Pressure [Left Arm] 205/122 H Blood Pressure Mean [Left Arm] 149 Blood Pressure Source Automatic Cuff Blood Pressure Source [Left Arm] Automatic Cuff 02 Sat by Pulse Oximetry 98 97 97 Oxygen Delivery Method Room Air Room Air 06/13/25 14:30 06/13/25 15:00 06/13/25 15:30 Temperature Temperature Source Pulse Rate 85 83 82 Pulse Rate [Right Radial] Respiratory Rate 13 19 12 Blood Pressure 171/110 H 162/106 H 146/92 H Blood Pressure [Left Arm] Blood Pressure Mean [Left Arm] Blood Pressure Source Blood Pressure Source [Left Arm] 02 Sat by Pulse Oximetry 95 95 95 Oxygen Delivery Method 06/13/25 17:42 Temperature 98.2 F Temperature Source Pulse Rate 84 Pulse Rate [Right Radial] Respiratory Rate 20 Blood Pressure 141/91 H Blood Pressure [Left Arm] Blood Pressure Mean [Left Arm] Blood Pressure Source Blood Pressure Source [Left Arm] 02 Sat by Pulse Oximetry Oxygen Delivery Method Room Air Lab Data Lab Results 06/13/25 13:21: VBG pH 7.35, VBG pCO2 52.5 H, VBG pO2 45.1 H, VBG HCO3 28.5, VBG Total CO2 30.1 H, VBG O2 Saturation 76.6 H, VBG Base Excess 2.9 H, VBG Lactic Acid 1.7 06/13/25 13:26: WBC 11.1 H, RBC 5.09, Hgb 14.5, Hct 42.2, MCV 82.9, MCH 28.5, MCHC 34.4, RDW 13.3, Plt Count 209, MPV 10.7 H, Neut % (Auto) 73.8, Lymph % (Auto) 19.2, Cache % (Auto) 4.6, Eos % (Auto) 1.3, Baso % (Auto) 0.4, Neut # (Auto) 8.2 H, Lymph # (Auto) 2.1, Cache # (Auto) 0.5, Eos # (Auto) 0.1, Baso # (Auto) 0.1, D-Dimer 0.55 H, Sodium 138, Potassium 3.5, Chloride 100, Carbon Dioxide 30, Anion Gap 11.5, BUN 14, Creatinine 1.00, Estimated Creat Clear 102, Estimated GFR 81, Est GFR ( Amer) 98, Glucose 92, Calcium 9.4, Magnesium 1.8, Total Bilirubin 0.8, AST 37, ALT 43, Alkaline Phosphatase 105, Troponin I < 0.01, NT-Pro-B Natriuret Pep 78.1, Total Protein 7.8, Albumin 4.5, Globulin 3.3 H, Albumin/Globulin Ratio 1.4, Lipase 30, HCV Ab HARMEET w/Rflx PCR Qn Negative, HIV Ag/Ab Combo Qual Negative 06/13/25 16:08: Troponin I < 0.01 06/13/25 13:26 06/13/25 13:26 Orders (Tests/Meds): ED MEDICATIONS Discontinued Medications Generic Name Dose Route Start Last Admin Trade Name Freq PRN Reason Stop Dose Admin Aspirin 325 mg 06/13/25 13:36 06/13/25 13:56 Aspirin 325mg Tablet PO 06/13/25 13:37 325 mg ONCE ONE Administration Morphine Sulfate 2 mg 06/13/25 13:36 06/13/25 13:59 Morphine 2mg/Ml Syringe IV 06/13/25 13:37 2 mg ONCE ONE Administration Ondansetron HCl 4 mg 06/13/25 13:36 06/13/25 13:56 Ondansetron 4mg/2ml Vial IV 06/13/25 13:37 4 mg ONCE ONE Administration ORDERS Category Date Time Status CXR --portable [XR chest portable] Stat Exams 06/13/25 13:21 Completed BNP [NT Pro Brain Natriuretic Pep.] Stat Lab 06/13/25 13:26 Completed Complete Blood Count Auto Diff Stat Lab 06/13/25 13:26 Completed Comprehensive Metabolic Panel Stat Lab 06/13/25 13:26 Completed D-Dimer Stat Lab 06/13/25 13:26 Completed HIV Combo Stat Lab 06/13/25 13:26 Completed Hepatitis C Ab Qual. W/ RFX Stat Lab 06/13/25 13:26 Completed Lipase Stat Lab 06/13/25 13:26 Completed Magnesium Stat Lab 06/13/25 13:26 Completed Troponin I Q3H Lab 06/13/25 13:26 Completed Troponin I Q3H Lab 06/13/25 16:08 Completed Venous Blood Gas Stat RT 06/13/25 13:21 Completed HEART Score History (anamnesis): Slightly suspicious ECG: Normal Age: 45-65 years Risk factors: 1-2 risk factors Troponin: </= normal limit HEART Score: 2 Medical Decision Narrative: patient is a 45-year-old male presenting to the emergency department for evaluation of chest pain and shortness of breath. Patient is hemodynamically stable however elevated blood pressure and nontoxic-appearing upon arrival, afebrile. Differential diagnosis includes chest pain, ACS, PE, among others. Workup will be conducted with hematologic labs, specific imaging. Initial inventions include analgesics. Initial workup reviewed by me hematologic labs are nonactionable. PE excluded with years criteria. Imaging informally interpreted by me and remarkable for nothing acute. Formal imaging read remarkable for nothing acute. Awaiting second troponin. Second troponin was negative. Discussed with patient that he needs to follow-up with cardiology. Patient safe for discharge home. Critical Care Critical Care Time Critical Care Time: No
[2025-06-13 14:01] LABS: NT Pro Brain Natriuretic Pep. 78.1 pg/mL (0-125)
[2025-06-13 14:11] LABS: Troponin I < 0.01 ng/ml (0.00-0.034)
[2025-06-13 15:27] LABS: Hepatitis C Ab Qual. W/ RFX NEGATIVE (Negative)
[2025-06-13 17:15] LABS: Troponin I < 0.01 ng/ml (0.00-0.034)
== END 2025-06-13 17:43 | disposition home or self-care (01) ==
PROVIDERS: Nurse Practitioner; Emergency Provider Student in an Organized Health Care Education/Training Program; PCP Internal Medicine
DX: R07.9 Chest pain, unspecified (principal); I10 Essential (primary) hypertension; F33.1 Major depressive disorder, recurrent, moderate; G47.33 Obstructive sleep apnea (adult) (pediatric)
CPT/HCPCS: 71045; 80053; 82803; 83690; 83735; 83880; 84484; 85025; 85378; 86803; 87389; 93005; 96374; 96375; 99285; J2270; J2405

== ENCOUNTER 2025-06-14 09:34 | Outpatient (CLI) | payer BC, SELFPAY ==
--- NOTE | 2025-06-14 12:15 | CT_ITS ---
FINAL REPORT TECHNIQUE: The patient was injected with IV contrast. Axial images were obtained through the chest in a PE protocol. 3-D reconstruction images were also performed. Individualized dose reduction techniques using automated exposure control or adjustment of the MA and/or KV according to patient's size were employed. CLINICAL HISTORY: elevated d-dimer COMPARISON: None FINDINGS: Timing of the contrast bolus was suboptimal on this examination due to timing, however, no large central pulmonary artery filling defects are identified to suggest PE. Evaluation for aortic dissection is also limited. There is no axillary adenopathy. There is no hilar or mediastinal adenopathy. The heart size is normal. There is no pericardial or pleural effusion. Limited images of the upper abdomen are unremarkable. No suspicious infiltrate or nodule is identified. Multiple calcified granulomas are identified. IMPRESSION: Timing of contrast bolus was suboptimal and limits evaluation of secondary vessels for pulmonary artery filling defects, however, no large central pulmonary emboli are identified. Evaluation for aortic dissection is also limited. No pulmonary infiltrates or effusions are identified. Reviewed, Interpreted and Dictated by Lenin Summers MD Transcribed by Vannesa Alvarado Authenticated and [facility][1]
[2025-06-14 12:31] LABS: Alanine Aminotransferase 50 U/L (12-78); Albumin Level 4.2 g/dl (3.5-5.0); Alkaline Phosphatase 119 U/L (38-126); Aspartate Amino Transferase 36 U/L (17-59); Bilirubin,Direct 0.2 mg/dl (0.0-0.4); Bilirubin,Indirect 0.7 mg/dL (0.0-0.9); Bilirubin,Total 0.9 mg/dl (0.2-1.3); Bilirubin,Unconjugated 0.7 mg/dL (0.0-1.1); Cholesterol 184 mg/dl (140-200); HDL Cholesterol 37 mg/dl (40-60); Total Protein,Serum 7.0 g/dl (6.3-8.2); Triglycerides 152 mg/dl (30-150)
[2025-06-14 12:51] LABS: Free T4 (Free Thyroxine) 1.05 ng/dl (0.78-2.19)
[2025-06-14] MEDS: 0.9 % SODIUM CHLORIDE 50 ML VIAL IV (13:04)
[2025-06-14] MEDS: IOPAMIDOL-370 (76%);100ML BOTTLE 80 ML IV (13:04)
[2025-06-14] MEDS: SODIUM CHLORIDE 0.9% 10ML SYR (RAD ONLY) 10 ML IV (13:04)
[2025-06-14 13:05] LABS: Thyroid Stimulating Hormone 0.46 uIU/mL (0.465-4.68)
[2025-06-14 13:54] LABS: Hemoglobin A1C 5.1 % (4.0-6.0)
== END 2025-06-14 23:59 | disposition home or self-care (01) ==
PROVIDERS: PCP Internal Medicine; Visit Provider Nurse Practitioner
DX: R94.31 Abnormal electrocardiogram [ECG] [EKG] (principal); R79.89 Other specified abnormal findings of blood chemistry; R07.9 Chest pain, unspecified; R06.00 Dyspnea, unspecified; I10 Essential (primary) hypertension
CPT/HCPCS: 36415; 71275; 80061; 80076; 83036; 84439; 84443; Q9967

== ENCOUNTER 2025-07-13 06:10 | Outpatient (CLI) | payer BC, SELFPAY ==
[2025-07-13] MEDS: DEFINITY US ECHO CONTRAST 2ML INJ 2 MG IV (07:05)
--- NOTE | 2025-07-13 09:00 | CA_ITS ---
APPROVED REPORT EXAM: Comprehensive 2D, Doppler, and color-flow Echocardiogram [employer]ment Program Coordinator: GUSTABO Vazquez, RVS Ht: 6 ft 0 in Wt: 486lbs BSA: 3.11 BP: 155/98 mmHg Indications: Chest pain, HTN, Ex-smoker, SOB, Fatigue Echo Enhancing Agent Indication: Endocardial border delineation Agent(s) / Amount(s) Used: Definity cc 2D Dimensions LVDd 5.68 cm LA Volume 58.20 mL Left Atrium 4.67 cm LA Volume Index 18.214393 mL/m2 (M/F) 16-34 EF AP4 53.70 % GL Strain -22.3 % M-Mode Dimensions RVDd 1.08 cm (0.9-2.6) LA Diam 4.33 cm (1.9-4.0) LVDd 5.37 cm (3.5-5.7) LVDs 2.97 cm (3.5-5.7) IVSd 1.37 cm (0.6-1.1) PWd 1.46 cm (0.6-1.1) EF (Teich) 75.50% EPSs 1.08 cm FS 44.70% EDV (Teich) 139.50 mL TAPSE 1.94 (<1.7) ESV (Teich) 34.20 mL LV Diastology E Decel Time 237 (160-240 msec) E/A Ratio 1.10 MED A' 12.40 cm/s LAT A' 10.60 cm/s Aortic Valve AoV Peak Bryant. 112.0 (50-130 cm/s) AO Peak GR. 5.00 mmHg AO Mean GR. 2.50 (<5 mmHg) AO VTI 21.8 (18-25 cm) Mitral Valve MV A Velocity 50.0 (40-130 cm/s) E/A Ratio 1.10 Pulmonary Valve PV Peak Velocity 87.0 (50-150 cm/s) Left Ventricle The left ventricle is normal size. Left ventricular systolic function is normal. The left ventricular ejection fraction is within the normal range. There is increased left ventricular wall thickness. There is normal LV segmental wall motion. The left ventricular diastolic function is indeterminate. No left ventricle thrombus noted on this study. LVEF is 55%. Right Ventricle The right ventricle is mildly to moderately dilated. The right ventricular systolic function is normal. Atria The left atrium size is normal. The right atrium size is normal. There is no color Doppler evidence of interatrial shunt. Aortic Valve The aortic valve opens well. There is no hemodynamically significant aortic valvular stenosis. No aortic regurgitation is present. Mitral Valve The mitral valve is normal in structure. No evidence of mitral valve stenosis. Trace mitral regurgitation is present. Tricuspid Valve The tricuspid valve leaflets are thin and pliable. Trace tricuspid regurgitation. There is insufficient TR jet to estimate RVSP. Pulmonic Valve The pulmonary valve is grossly normal in structure. Trace pulmonic valve regurgitation is present. Great Vessels The aortic root is normal in size. IVC is normal in size and collapses >50% with inspiration. Pericardium There is no pericardial effusion. Other Information Study Quality: Technically Difficult Conclusion Normal biventricular systolic function. Mild to moderate RV dilation. No significant valvular stenosis or regurgitation. Electronically signed by : Francine Rodriguez MD 07/14/2025 23:00:00
== END 2025-07-13 23:59 | disposition home or self-care (01) ==
PROVIDERS: PCP Internal Medicine; Visit Provider Nurse Practitioner
DX: I11.9 Hypertensive heart disease without heart failure (principal); R79.89 Other specified abnormal findings of blood chemistry; R94.31 Abnormal electrocardiogram [ECG] [EKG]; Z87.891 Personal history of nicotine dependence
CPT/HCPCS: 93306; Q9957

== ENCOUNTER 2025-08-21 05:21 | Emergency (ER) | payer BC, SELFPAY ==
--- OUTSIDE RECORDS SUMMARY | 2025-08-21 05:26 | XMS_ITS ---
Author Organization Unknown ENCOUNTERS Encounter Performer Location Date Diagnosis Diagnosis Status Pre Admit [facility] [address] [place] [address] [id number] Emergency [facility] [address] [place] [address] [id number] Pre Admit [facility] [address] [place] [id number] Emergency [facility] [address] [id number] J[facility] Emergency [facility] [address] [place] [address] [id number] JC *Note: Encounters from your own facility or health system may be excluded. Allergies, Adverse Reactions, Alerts Allergen Type Severity Identification Date Cefaclor propensity to advers e reactions 4 20180909 Penicillins drug allergy 0 20200530 Penicillin propensity to advers e reactions 3 20180909 cephalexin drug allergy 0 20200530 From Cephalexin Monohydrate propensity t o adverse reactions 4 20180909 Medications Name Date Quantity Days Supplied GPI Number
[2025-08-21 05:28] VITALS: BP 153/104; PULSE 80; RESP 18; TEMP 36.8; O2SAT 98; BMI 65.9
--- NOTE | 2025-08-21 05:30 | XR_ITS ---
PROCEDURE INFORMATION: Exam: XR Chest Exam date and time: 08/21/2025 5:42 AM Age: 45 years old Clinical indication: Pain; Left-sided; Additional info: Left rib pain TECHNIQUE: Imaging protocol: Radiologic exam of the chest. Views: 1 view. COMPARISON: CT ANGIO CHEST PE PROTOCOL 06/14/2025 12:57 PM FINDINGS: Limitations: Exam is compromised by patient body habitus. Lungs: Low lung volumes. No acute appearing consolidation. Pleural spaces: No pleural effusion. No pneumothorax. Heart/Mediastinum: No acute findings or cardiomegaly. Bones/joints: No acute findings. IMPRESSION: 1. Limited exam. 2. Low lung volumes without acute consolidation.
[2025-08-21 05:31] VITALS: BP 153/104; PULSE 83; RESP 16; TEMP 36.8; O2SAT 98
--- NOTE | 2025-08-21 05:42 | [facility].EDGENADL ---
Discharge Plan Disposition Patient Disposition: Home, Self-Care Prescriptions Prescriptions: New methocarbamol 500 mg tablet 1,500 mg PO Q6H PRN (Reason: pain) Qty: 30 0RF lidocaine 5 % adhesive patch,medicated 1 patch topical DAILY PRN (Reason: pain) Qty: 30 0RF Rx Instructions: leave on most painful area for up to 12 hrs No Action valsartan-hydrochlorothiazide 320-25 mg tablet 1 tab PO DAILY Qty: 30 2RF Wegovy 0.25 mg/0.5 mL pen injector 0.25 mg SQ WEEKLY Qty: 2 0RF Rx Instructions: administer weeks 1 through 4 of therapy omeprazole 40 mg capsule,delayed release(DR/EC) 40 mg PO DAILY 90 Days Qty: 90 1RF venlafaxine 150 mg capsule,extended release 24hr 150 mg PO DAILY Qty: 90 1RF spironolactone [Aldactone] 25 mg tablet 25 mg PO DAILY Qty: 30 2RF Referrals Follow up/Referrals: Sergio Nye MD [Primary Care Provider, Medical] - See instructions Activity Restrictions/Add. Instructions Additional Instructions/Restrictions: Please take Tylenol ibuprofen Robaxin and use lidocaine patches as needed for pain. Please follow-up with your primary care provider. Please return to the emergency department if you develop any new or worsening symptoms or become concerned for your health. Clinical Impressions Clinical Impression: Rib pain on left side Print Language Print Language: Polish Discharge ED Provider: Prabhjot Oneal General Adult HPI General Chief complaint: PAIN Stated complaint: Pain in L side of Ribs Time Seen by Provider: 08/21/25 05:30 Mode of Arrival: Ambulatory Source of Information: Patient Description of Symptoms (Recalled from ER Triage Doc. by RN): PT presents to the Ed for evaluation of L rib pain. PT stated that on 08/20/2025 he was cleaning his bathtub and bent over and felt a pop. Denies falling. History of Present Illness HPI narrative: 45-year-old male with history of obesity presents for left-sided rib pain. He reports that last night he was cleaning his bathtub and bent over and felt a pop and since that time has had pain in his left lateral lower rib cage. He denies any significant shortness of breath but it does hurt when he breathes or coughs. Denies any fever or chills. Related Data Previous Rx's ?Medication ?Instructions ?Recorded omeprazole 40 mg capsule,delayed 40 mg PO DAILY ACID REFLUX 90 days 12/08/24 release #90 caps venlafaxine 150 mg 150 mg PO DAILY #90 caps 12/08/24 capsule,extended release 24 hr spironolactone 25 mg tablet 25 mg PO DAILY #30 tabs 06/14/25 (Aldactone) semaglutide (weight loss) 0.25 0.25 mg (0.5 mL) SQ WEEKLY #2 mL 08/08/25 mg/0.5 mL subcutaneous pen injector (Wegovy) valsartan 320 1 tab PO DAILY #30 tabs 08/08/25 mg-hydrochlorothiazide 25 mg tablet lidocaine 5 % topical patch 1 patch topical DAILY PRN pain #30 08/21/25 ea methocarbamol 500 mg tablet 1,500 mg (3 x 500 mg) PO Q6H PRN 08/21/25 pain #30 tabs Allergies Allergy/AdvReac Type Severity Reaction Status Date / Time cefaclor (From Ceclor) Allergy Difficulty Verified 08/08/25 11:40 Breathing cephalexin (From Keflex) Allergy Hives Verified 08/08/25 11:40 Penicillins Allergy Unknown Verified 08/08/25 11:40 allergy reaction PFSH PFSH Disclaimer: The information contained in this section may have been updated after the patient was seen, as this information can be updated by other users. Medical History (Updated 08/21/25 @ 09:29 by Cassidy Cohen RN) Obesity Asthma High blood pressure Obstructive sleep apnea Depression Surgical History History of hernia surgery History of surgery on arm Family History Other Diabetes Hypertension Obesity Stroke Social History Smoking Status: Never smoker smoking status start date: 1993 years smoked: 18 smoking status stop date: 2011 alcohol intake: current alcohol intake frequency: holidays/special occasions only substance use type: denies use and other current occupational status: employed Travel in the last 8 weeks?: None household members: family housing: house marital status: number of children: 2 caffeine: No Have you lived/traveled outside [place] in past 30 days?: No Contact w/someone who lives/traveled outside [place] past 30 days?: No Exposure to someone with infectious disease in past 14 days?: No Do you have a fever (greater than 100.4 F or 38 C)?: No Have you tested positive for COVID-19?: No Exposed to someone with COVID-19 in past 14 days?: No Do you have a sore throat?: No Do you have a cough?: No Do you have any weakness?: No Do you have any diarrhea?: No Are you experiencing any unusual bleeding?: No Do you have any muscle aches/pain?: Yes Do you have any abdominal pain?: No Are you experiencing loss of taste or smell?: No Other Medical History Have you received the Flu Vaccine for this season: Yes Have you received the Pneumonia Vaccine: No ROS Obtained: Yes All systems reviewed & no additional complaints except as documented Physical Exam General General appearance: alert and in no apparent distress Head Head exam: atraumatic and normocephalic Eye Eye exam: Present normal appearance, PERRL and EOMI ENT ENT exam: Present normal oropharynx and normal external ear exam Neck Neck exam: Present normal inspection and full ROM Chest Chest inspection: Present normal inspection, symmetric chest wall rise and tenderness (Left lateral rib margin tenderness) Respiratory Respiratory exam: Present normal lung sounds bilaterally; Absent respiratory distress Cardiovascular Cardiovascular exam: Present regular rate and normal rhythm Abdominal Exam Abdominal exam: Present soft; Absent distention, tenderness or guarding Extremities Exam Extremities exam: Present normal inspection; Absent edema or joint swelling Back Exam Back exam: Present normal inspection; Absent tenderness Neurological Exam Neurological exam: Present alert and oriented X3; Absent motor sensory deficit Psychiatric Psychiatric exam: Present normal affect and normal mood Skin Skin exam: Present warm, dry and normal color Lymphatic Lymphatic Findings: no adenopathy Medical Decision Making Medical Records Medical records reviewed: Yes I reviewed the patient's medical records. Screening: Per USPSTF and CDC recommendations, given the prevalence of disease in our region, it is our hospital?s policy to screen for HIV and viral Hepatitis for all patients aged 18 and over and those with ongoing risk factors. Rajendra Inquiry Pt receiving controlled substance: No Rajendra was queried for this patient: No Vital Signs: 08/21/25 05:28 08/21/25 05:31 08/21/25 05:55 Temperature 98.3 F 98.3 F 98.3 F Temperature Source Oral Oral Oral Pulse Rate 83 80 Pulse Rate [Right] 80 Respiratory Rate 18 16 16 Blood Pressure 153/104 H 153/104 H Blood Pressure [Right Arm] 153/104 H Blood Pressure Mean [Right Arm] 120 02 Sat by Pulse Oximetry 98 98 Oxygen Delivery Method Room Air Room Air Room Air Lab Data Lab results reviewed: Yes I reviewed the patient's lab results. Orders (Tests/Meds): ED MEDICATIONS Discontinued Medications Generic Name Dose Route Start Last Admin Trade Name Iveth PRN Reason Stop Dose Admin Acetaminophen 1,000 mg 08/21/25 05:30 08/21/25 05:46 Acetaminophen 500mg Tab PO 08/21/25 05:31 1,000 mg ONCE ONE Administration Ibuprofen 600 mg 08/21/25 05:30 08/21/25 05:46 Ibuprofen 600 Mg Tablet PO 08/21/25 05:31 600 mg ONCE ONE Administration Lidocaine 1 each 08/21/25 05:30 08/21/25 05:46 Lidocaine 5% Transdermal Patch TD 08/21/25 05:31 1 each ONCE ONE Administration Methocarbamol 1,500 mg 08/21/25 05:30 08/21/25 05:46 Methocarbamol 500mg Tablet PO 08/21/25 05:31 1,500 mg ONCE ONE Administration ORDERS Category Date Time Status CXR --portable [XR chest portable] Stat Exams 08/21/25 05:30 Completed Medical Decision Narrative: 45-year-old male with history of obesity presents for left lateral lower rib pain since last night after he felt a pop while leaning over. History was obtained via interactive discussion with patient. On arrival, patient is [afebrile, hemodynamically stable, satting appropriately, alert, oriented x4, GCS 15], moving all extremities spontaneously. Full physical exam performed and significant for mild tenderness to the left lateral rib margin. Clear lungs bilateral Differential includes but is not limited to rib fracture, musculoskeletal strain, pneumothorax. Patient was given Tylenol ibuprofen Robaxin for symptomatic management and correction of underlying abnormalities. Workup initiated including chest x-ray. On re-evaluation, patient [remains afebrile, HD stable.] Imaging independently interpreted by me and significant for no pneumothorax or obvious rib fracture. See radiology read for full review of final results. 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 Given patient history, exam and workup, patient's presentation most likely represents musculoskeletal pain, possible rib fracture. I discussed with patient that this may take weeks to heal. He was discharged with prescription for muscle relaxers and lidocaine patches. Return precautions given. Procedures Risk/Benefits of Procedure(s) Were Explained: Yes Critical Care Critical Care Time Critical Care Time: No
[2025-08-21] MEDS: IBUPROFEN 600 MG TABLET PO (05:46)
[2025-08-21] MEDS: ACETAMINOPHEN 500MG TAB 1000 MG PO (05:46)
[2025-08-21] MEDS: METHOCARBAMOL 500MG TABLET 1500 MG PO (05:46)
[2025-08-21] MEDS: LIDOCAINE 5% TRANSDERMAL PATCH 1 EACH TD (05:46)
[2025-08-21 05:55] VITALS: BP 153/104; PULSE 80; RESP 16; TEMP 36.8; O2SAT 100
== END 2025-08-21 06:00 | disposition home or self-care (01) ==
PROVIDERS: Emergency Provider Emergency Medicine; PCP Internal Medicine
DX: R07.81 Pleurodynia (principal)
CPT/HCPCS: 71045; 99283; 99284